=== PATIENT | female | born 1930 | race Caucasian/White ===

== ENCOUNTER 2019-02-16 23:19 | Inpatient (IN) | payer MEDICAID, MEDICARE, OTHER ==
[2019-02-17] MEDS ORDERED: fentaNYL 100 MCG/2 ML SDV NASBOTH ONE ×3 (00:14→02:30)
--- NOTE | 2019-02-17 00:16 | EDM.PDOC ---
ED HPI GENERAL MEDICAL PROBLEM - General Chief Complaint: Lower Extremity Injury/Pain Stated Complaint: BROKEN HIP? Time Seen by Provider: 02/17/19 00:11 Source of Information: Reports: Patient, Family, RN Notes Reviewed History Limitations: Reports: No Limitations - History of Present Illness INITIAL COMMENTS - FREE TEXT/NARRATIVE: 88-year-old female presents emergency department today complaint of right hip pain she had a fall at home does have a history of replacement on the right side she is experiencing significant pain and cannot ambulate. Of note she is on hospice for congestive heart failure right hip/groin Pain Score (Numeric/FACES): 3 - Related Data Allergies Allergy/AdvReac Type Severity Reaction Status Date / Time aspirin Allergy Cannot Verified 02/16/19 23:45 Remember Home Meds: Home Meds Acetaminophen [Tylenol] 325 mg PO DAILY 02/16/19 [History] Digoxin [Digox] 125 mcg PO DAILY 02/16/19 [History] Diltiazem [Diltiazem XR] 240 mg PO DAILY 02/16/19 [History] Furosemide [Lasix] 40 mg PO BID 02/16/19 [History] Lisinopril 10 mg PO DAILY 02/16/19 [History] Melatonin 5 mg PO BEDTIME 02/16/19 [History] Metoprolol Succinate 100 mg PO DAILY 02/16/19 [History] Phenytoin Sodium Extended [Dilantin] 100 mg PO DAILY 02/16/19 [History] Potassium Chloride 20 meq PO DAILY 02/16/19 [History] Sennosides/Docusate Sodium [Senna Plus 8.6-50 mg Tablet] 1 tab PO DAILY [History] Spironolactone [Aldactone] 37.5 mg PO DAILY 02/16/19 [History] Past Medical History HEENT History: Reports: Impaired Vision Cardiovascular History: Reports: Afib, Heart Failure, Hypertension Respiratory History: Reports: COPD CLINICAL NURSE History: Reports: Musculoskeletal History: Reports: Fracture Neurological History: Reports: Seizure Psychiatric History: Reports: Dementia - Infectious Disease History Infectious Disease History: Reports: Chicken Pox, Measles, Mumps - Past Surgical History Musculoskeletal Surgical History: Reports: Hip Replacement, Other (See Below) Other Musculoskeletal Surgeries/Procedures:: x2 hip fractures/ replacements on right side. surgical repair of left knee Social & Family History - Tobacco Use Smoking Status *Q: Never Smoker - Caffeine Use Caffeine Use: Reports: Coffee - Recreational Drug Use Recreational Drug Use: No Review of Systems - Review of Systems Review Of Systems: See Below Musculoskeletal: Reports: Joint Pain (Hip pain) ED EXAM, GENERAL - Physical Exam Exam: See Below Free Text/Narrative:: Dissemination the right hip I don't appreciate any bruising there is no erythema noted she is tender to the slightest flexion or extension of the right hip no tenderness at the knee Exam Limited By: No Limitations General Appearance: Alert, WD/WN, No Apparent Distress Course - Vital Signs Last Recorded V/S: Last Vital Signs Temp 97.7 F 02/16/19 23:56 Pulse 88 02/16/19 23:56 Resp 15 02/16/19 23:56 BP 149/73 H 02/16/19 23:56 Pulse Ox 97 02/16/19 23:56 - Orders/Labs/Meds Orders: Active Orders 24 hr Category Date Time Status Peripheral IV Care [RC] . DIRECTED Care 02/17/19 03:16 Ordered HYDROmorphone [Dilaudid] Med 02/17/19 03:16 Once 0.5 mg IVPUSH ONETIME ONE Sodium Chloride 0.9% [Saline Flush] Med 02/17/19 03:16 Ordered 10 ml FLUSH ASDIRECTED PRN Peripheral IV Insertion Adult [OM.PC] Urgent Oth 02/17/19 03:16 Ordered Medication Orders Hydromorphone HCl (Dilaudid) 0.5 mg IVPUSH ONETIME ONE Stop: 02/17/19 03:17 Sodium Chloride (Saline Flush) 10 ml FLUSH ASDIRECTED PRN PRN Reason: Keep Vein Open Meds: Medications Generic Name Dose Route Start Last Admin Trade Name Freq PRN Reason Stop Dose Admin Hydromorphone HCl 0.5 mg 02/17/19 03:16 Dilaudid IVPUSH 02/17/19 03:17 ONETIME ONE Sodium Chloride 10 ml 02/17/19 03:16 Saline Flush FLUSH ASDIRECTED PRN Keep Vein Open Discontinued Medications Generic Name Dose Route Start Last Admin Trade Name Freq PRN Reason Stop Dose Admin Fentanyl 25 mcg 02/17/19 00:14 02/17/19 00:28 Sublimaze NASBOTH 02/17/19 00:15 25 mcg ONETIME ONE Administration Fentanyl 50 mcg 02/17/19 02:28 02/17/19 02:35 Sublimaze NASBOTH 02/17/19 02:29 Not Given ONETIME ONE Fentanyl 50 mcg 02/17/19 02:30 02/17/19 02:39 Sublimaze NASBOTH 02/17/19 02:31 50 mcg ONETIME ONE Administration Departure - Departure Time of Disposition: 03:19 Disposition: Admitted As Inpatient 67 Condition: Poor Clinical Impression: Fracture of superior pubic ramus Qualifiers: Encounter type: initial encounter Fracture type: closed Laterality: right Qualified Code(s): S32.511A - Fracture of superior rim of right pubis, initial encounter for closed fracture Inferior pubic ramus fracture Qualifiers: Encounter type: initial encounter Fracture type: closed Laterality: right Qualified Code(s): S32.591A - Other specified fracture of right pubis, initial encounter for closed fracture - Discharge Information Referrals: PCP,None [Primary Care Provider] - Forms: ED Department Discharge - My Orders Last 24 Hours: My Active Orders 02/17/19 03:16 Peripheral IV Care [RC] . DIRECTED HYDROmorphone [Dilaudid] 0.5 mg IVPUSH ONETIME ONE Sodium Chloride 0.9% [Saline Flush] 10 ml FLUSH ASDIRECTED PRN Peripheral IV Insertion Adult [OM.PC] Urgent - Assessment/Plan Last 24 Hours: My Active Orders 02/17/19 03:16 Peripheral IV Care [RC] . DIRECTED HYDROmorphone [Dilaudid] 0.5 mg IVPUSH ONETIME ONE Sodium Chloride 0.9% [Saline Flush] 10 ml FLUSH ASDIRECTED PRN Peripheral IV Insertion Adult [OM.PC] Urgent Plan: Assessment Acuity = acute Site and laterality = acute nondisplaced fractures right superior inferior pubic rami the pelvis Etiology = secondary to a fall Manifestations = pain Location of injury = Home Lab values = CT describes the fractures above Plan Called discussed case with Dr. Combs at 320 he agreed to come in and evaluate the patient patient in the hospital she will be admitted for pain control This note was dictated using [employer] voice recognition software please call with any questions on syntax or grammar.
--- NOTE | 2019-02-17 01:36 | CRLCR ---
Indication: Fall, pain Technique: One view Comparison: None Findings: Single-view right hip shows the patient to be status post right total hip replacement with lateral plate and screw fixation of the proximal femur with multiple cerclage wires. Plate and screws are not entirely included on this examination. There is underlying osteopenia without acute fracture on this single view. No dislocation of the prosthesis. Atherosclerotic calcification noted. Dictated by Williams Mcdonald MD @ Feb 17 2019 1:31AM Signed by Dr. Williams Mcdonald @ Feb 17 2019 1:33AM
--- NOTE | 2019-02-17 02:58 | CRLCT ---
INDICATION: Pain after fall TECHNIQUE: CT pelvis without contrast. COMPARISON: Right hip series 02/17/2019 FINDINGS: Patient is status post right total hip replacement with lateral plate and cerclage wires without evidence of periprosthetic fracture. However, there is a nondisplaced fracture of the right superior pubic ramus near the pubic symphysis as well is a nondisplaced right inferior pubic ramus fracture. There is also a more subtle corresponding nondisplaced right sacral ala fracture, zone 1. There is underlying osteopenia. Degenerative disc disease is noted within the lower lumbar spine, greatest at the L3-4 level. There is a prominent atherosclerotic calcification. No significant hematoma. IMPRESSION: 1. Acute nondisplaced fractures of the right superior and inferior pubic rami. 2. Nondisplaced right sacral alar fracture, zone 1. 3. Status post right total hip replacement and lateral plate and screw fixation of the proximal right femur. Please note that all CT scans at this facility use dose modulation, iterative reconstruction, and/or weight-based dosing when appropriate to reduce radiation dose to as low as reasonably achievable. Dictated by Williams Mcdonald MD @ Feb 17 2019 2:43AM Signed by Dr. Williams Mcdonald @ Feb 17 2019 2:56AM
[2019-02-17] MEDS ORDERED: HYDROmorphone 0.5 MG/0.5 ML Syringe IVPUSH ONE (03:16)
[2019-02-17] MEDS ORDERED: Sodium Chloride 0.9% 10 ML Syringe FLUSH PRN (03:16)
--- NOTE | 2019-02-17 07:25 | PCM.HP.2 ---
H&P History of Present Illness - General Date of Service: 02/17/19 Admit Problem/Dx: Admission Diagnosis/Problem Admission Diagnosis/Problem Fracture of pelvis Source of Information: Patient, EMS History Limitations: Reports: Altered Mental Status - History of Present Illness Initial Comments - Free Text/Narative: 88-year-old female with past medical history of COPD, seizure disorder, congestive heart failure, systolic, diastolic HF, previous history of alcohol abuse, atrial fibrillation, hypertension, GERD, generalized anxiety disorder, hypokalemia, history of tobacco abuse, in hospice care came to the ED with the concerns of fall. Patient has intermittent confusion. In the ED patient had x-ray of hip and CT pelvis which showed fracture of right superior, inferior ramus fracture and coccyx Fx. Patient received DIlaudid in the ED which control the pain. Patient is in hospice care. Other review of systems are not significant. right hip/groin Pain Score (Numeric/FACES): 5 - Related Data Allergies/Adverse Reactions: Allergies Allergy/AdvReac Type Severity Reaction Status Date / Time aspirin Allergy Cannot Verified 02/16/19 23:45 Remember Home Medications: Home Meds Acetaminophen [Tylenol] 325 mg PO DAILY 02/16/19 [History] Digoxin [Digox] 125 mcg PO DAILY 02/16/19 [History] Diltiazem [Diltiazem XR] 240 mg PO DAILY 02/16/19 [History] Furosemide [Lasix] 40 mg PO BID 02/16/19 [History] Lisinopril 10 mg PO DAILY 02/16/19 [History] Melatonin 5 mg PO BEDTIME 02/16/19 [History] Metoprolol Succinate 100 mg PO DAILY 02/16/19 [History] Phenytoin Sodium Extended [Dilantin] 100 mg PO DAILY 02/16/19 [History] Potassium Chloride 20 meq PO DAILY 02/16/19 [History] Sennosides/Docusate Sodium [Senna Plus 8.6-50 mg Tablet] 1 tab PO DAILY [History] Spironolactone [Aldactone] 37.5 mg PO DAILY 02/16/19 [History] Past Medical History HEENT History: Reports: Impaired Vision Cardiovascular History: Reports: Afib, Heart Failure, Hypertension Respiratory History: Reports: COPD DENTURE PACKER History: Reports: Musculoskeletal History: Reports: Fracture Neurological History: Reports: Seizure Psychiatric History: Reports: Dementia - Infectious Disease History Infectious Disease History: Reports: Chicken Pox, Measles, Mumps - Past Surgical History Musculoskeletal Surgical History: Reports: Hip Replacement, Other (See Below) Other Musculoskeletal Surgeries/Procedures:: x2 hip fractures/ replacements on right side. surgical repair of left knee Social & Family History - Family History Family Medical History: Noncontributory - Tobacco Use Smoking Status *Q: Never Smoker - Caffeine Use Caffeine Use: Reports: Coffee - Recreational Drug Use Recreational Drug Use: No H&P Review of Systems - Review of Systems: Review Of Systems: See Below General: Denies: Fever, Chills Pulmonary: Denies: Shortness of Breath, Wheezing Cardiovascular: Denies: Chest Pain, Palpitations Gastrointestinal: Denies: Abdominal Pain, Anorexia Genitourinary: Denies: Dysuria, Frequency Musculoskeletal: Reports: Leg Pain, Muscle Pain. Denies: Neck Pain, Muscle Stiffness Skin: Denies: Cyanosis, Jaundice Psychiatric: Reports: Confusion. Denies: Depression, Mood Lability Neurological: Reports: Confusion. Denies: Dizziness, Headache Exam - Exam Exam: See Below - Vital Signs Vital Signs: Last Vital Signs Temp 35.7 C 02/17/19 03:22 Pulse 83 02/17/19 03:22 Resp 20 02/17/19 03:22 BP 134/88 02/17/19 03:22 Pulse Ox 92 L 02/17/19 03:22 Weight: 58.967 kg - Exam General: Alert. No: Oriented Neck: Supple, Trachea Midline Lungs: Clear to Auscultation, Normal Respiratory Effort Cardiovascular: No: Regular Rate, Regular Rhythm GI/Abdominal Exam: Normal Bowel Sounds Extremities: Normal Inspection (Patient has external rotation of right lower extremity) - Problem List (1) COPD (chronic obstructive pulmonary disease) SNOMED Code(s): 49147310 ICD Code: J44.9 - CHRONIC OBSTRUCTIVE PULMONARY DISEASE, UNSPECIFIED Status : Acute Current Visit: Yes (2) Congestive heart failure SNOMED Code(s): 81842567 ICD Code: I50.9 - HEART FAILURE, UNSPECIFIED Status: Acute Current Visit : Yes (3) Hypertension SNOMED Code(s): 58652226 ICD Code: I10 - ESSENTIAL (PRIMARY) HYPERTENSION Status: Acute Current Visit: Yes (4) Hyperlipidemia SNOMED Code(s): 06153519 ICD Code: E78.5 - HYPERLIPIDEMIA, UNSPECIFIED Status: Acute Current Visit : Yes (5) Atrial fibrillation SNOMED Code(s): 59809143 ICD Code: I48.91 - UNSPECIFIED ATRIAL FIBRILLATION Status: Acute Current Visit: Yes (6) Seizure disorder SNOMED Code(s): 309817411 ICD Code: G40.909 - EPILEPSY, UNSP, NOT INTRACTABLE, WITHOUT STATUS EPILEPTICUS Status: Acute Current Visit: Yes (7) Alcohol abuse SNOMED Code(s): 47913223 ICD Code: F10.10 - ALCOHOL ABUSE, UNCOMPLICATED Status: Acute Current Visit: Yes (8) Gastroesophageal reflux disease SNOMED Code(s): 484164228 ICD Code: K21.9 - GASTRO-ESOPHAGEAL REFLUX DISEASE WITHOUT ESOPHAGITIS Status: Acute Current Visit: Yes (9) Hypokalemia SNOMED Code(s): 54783968 ICD Code: E87.6 - HYPOKALEMIA Status: Acute Current Visit: Yes (10) Tobacco abuse SNOMED Code(s): 330851101 ICD Code: Z72.0 - TOBACCO USE Status: Acute Current Visit: Yes (11) Fracture of superior pubic ramus SNOMED Code(s): 164934282 ICD Code: S32.519A - FRACTURE OF SUPERIOR RIM OF UNSP PUBIS, INIT FOR CLOS FX Status: Acute Current Visit: Yes Qualifiers: Encounter type: initial encounter Fracture type: closed Laterality: right Qualified Code(s): S32.511A - Fracture of superior rim of right pubis, initial encounter for closed fracture (12) Hip pain SNOMED Code(s): 13215317 ICD Code: M25.559 - PAIN IN UNSPECIFIED HIP Status: Acute Current Visit: Yes (13) Inferior pubic ramus fracture SNOMED Code(s): 655952522 ICD Code: S32.599A - OTH FRACTURE OF UNSP PUBIS, INIT ENCNTR FOR CLOSED FRACTURE Status: Acute Current Visit: Yes Qualifiers: Encounter type: initial encounter Fracture type: closed Laterality: right Qualified Code(s): S32.591A - Other specified fracture of right pubis, initial encounter for closed fracture Problem List Initiated/Reviewed/Updated: Yes Orders Last 24hrs: Active Orders 24 hr Category Date Time Status Patient Status [ADT] Routine ADT 02/17/19 03:22 Active Bedrest Bedside Commode [RC] ASDIRECTED Care 02/17/19 03:21 Active Oxygen Therapy [RC] PRN Care 02/17/19 03:22 Active Peripheral IV Care [RC] Q12H Care 02/17/19 03:16 Active VTE/DVT Education [RC] Per Unit Routine Care 02/17/19 03:22 Active Vital Signs [RC] Q4H Care 02/17/19 03:22 Active Regular Diet [DIET] Diet 02/17/19 Breakfast Active HYDROmorphone [Dilaudid] Med 02/17/19 03:25 Active 0.5 mg IVPUSH Q2H PRN Sodium Chloride 0.9% [Saline Flush] Med 02/17/19 03:16 Active 10 ml FLUSH ASDIRECTED PRN Peripheral IV Insertion Adult [OM.PC] Urgent Oth 02/17/19 03:16 Ordered Resuscitation Status Routine Resus Stat 02/17/19 03:21 Ordered Medication Orders Hydromorphone HCl (Dilaudid) 0.5 mg IVPUSH Q2H PRN PRN Reason: Pain Sodium Chloride (Saline Flush) 10 ml FLUSH ASDIRECTED PRN PRN Reason: Keep Vein Open Assessment/Plan Comment:: 38-year-old female with past medical history of COPD, hypertension, hyperlipidemia, atrial fibrillation, previous history of alcohol abuse, smoking abuse, congestive heart failure in hospice status came to the ED with the concerns of fall and diagnosed with hip fracture and admitted into the hospital in observational status. Patient received diluadid in the emergency department will continue the same will continue home medications observational status we hold on any lab investigations as patient is in hospice care DVT prophylaxis not indicated Diet general diet as tolerated hospice care, comfort care
[2019-02-17] MEDS: Morphine 10 MG/0.5 ML Oral Syringe PO PRN ×3 (09:36→18:54)
[2019-02-17] MEDS: Metoprolol Succinate 50 MG Tab.ER PO SCH (13:08)
[2019-02-17] MEDS: Spironolactone 25 MG Tab PO SCH (13:09)
[2019-02-17] MEDS: Diltiazem 120 MG Cap.CD PO SCH (13:09)
[2019-02-17] MEDS: Digoxin 125 MCG Tab PO SCH (13:10)
[2019-02-17] MEDS: Potassium Chloride 20 MEQ Tab.ER PO SCH (13:10)
[2019-02-17] MEDS: Acetaminophen 500 MG Tab PO SCH ×3 (13:10→20:56)
[2019-02-17] MEDS: Phenytoin 100 MG Cap.ER PO SCH (13:11)
[2019-02-17] MEDS: Furosemide 40 MG Tab PO SCH (13:11)
--- NOTE | 2019-02-17 16:24 | PCM.SN ---
- Free Text/Narrative Note: Lisa was admitted last night for pain control after a pelvic fracture 2/2 to a fall. she used her first dose of morphine this morning. her daughter has chosen to give up the so the patient can rehabilitate after this fracture. Referrals have been sent to nursing homes near where her daughter lives in [place]. Shortness of breath is at baseline. She is on supplemental oxygen which is chronic. [employer] [employer] social welfare research worker is involved of the discharge planning process and discharge planning team has sent detention referrals. Ceferino Gilbert M.D.
[2019-02-17] MEDS: HYDROmorphone 0.5 MG/0.5 ML Syringe IVPUSH PRN (16:41)
[2019-02-17] MEDS ORDERED: Melatonin 3 MG Tab PO SCH (21:00)
[2019-02-18] MEDS: Morphine 10 MG/0.5 ML Oral Syringe PO PRN ×3 (01:26→22:47)
[2019-02-18] MEDS: HYDROmorphone 0.5 MG/0.5 ML Syringe IVPUSH PRN ×2 (03:30→09:09)
[2019-02-18] MEDS: Metoprolol Succinate 50 MG Tab.ER PO SCH (08:41)
[2019-02-18] MEDS: Spironolactone 25 MG Tab PO SCH (08:41)
[2019-02-18] MEDS: Acetaminophen 500 MG Tab PO SCH ×3 (08:42→20:02)
[2019-02-18] MEDS: Phenytoin 100 MG Cap.ER PO SCH (08:42)
[2019-02-18] MEDS: Diltiazem 120 MG Cap.CD PO SCH (08:42)
[2019-02-18] MEDS: Potassium Chloride 20 MEQ Tab.ER PO SCH (08:42)
[2019-02-18] MEDS: Lisinopril 10 MG Tab PO SCH (08:43)
[2019-02-18] MEDS: Furosemide 40 MG Tab PO SCH ×2 (08:43→13:26)
[2019-02-18] MEDS: Haloperidol Lactate 5 MG/ML SDV IVPUSH PRN ×3 (09:01→20:42)
--- NOTE | 2019-02-18 09:50 | PCM.PN ---
- General Info Date of Service: 02/18/19 Subjective Update: Overnight the patient developed agitation and scratched the night nurse. She has been continued to be agitated this morning. She did receive a dose of Haldol and has been more cooperative since that time. Patient seems to be fairly well controlled and she did receive a couple of doses of morphine yesterday as well as a couple of doses of hydromorphone. She has not had any fevers. She continues to have a loose cough. Functional Status: Reports: Pain Controlled, Tolerating Diet - Review of Systems General: Denies: Fever Psychiatric: Reports: Agitation - Patient Data Vitals - Most Recent: Last Vital Signs Temp 36.0 C 02/18/19 08:00 Pulse 87 02/18/19 08:42 Resp 20 02/18/19 08:00 BP 156/87 H 02/18/19 08:43 Pulse Ox 97 02/18/19 08:00 Weight - Most Recent: 58.967 kg I&O - Last 24 Hours: Intake & Output 02/17/19 02/18/19 02/18/19 22:59 06:59 14:59 Intake Total 90 Output Total 350 125 Balance -260 -125 Med Orders - Current: Current Medications Acetaminophen (Tylenol Extra Strength) 1,000 mg PO TID [facility] Last Admin: 02/18/19 08:42 Dose: 1,000 mg Digoxin (Lanoxin) 125 mcg PO DAILY@1300 [facility] Last Admin: 02/17/19 13:10 Dose: 125 mcg Diltiazem HCl (Cardizem Cd) 240 mg PO DAILY [facility] Last Admin: 02/18/19 08:42 Dose: 240 mg Furosemide (Lasix) 40 mg PO BIDDIURETIC [facility] Last Admin: 02/18/19 08:43 Dose: 40 mg Haloperidol Lactate (Haldol) 1 mg IVPUSH Q2H PRN PRN Reason: Agitation Last Admin: 02/18/19 09:01 Dose: 1 mg Hydromorphone HCl (Dilaudid) 0.5 mg IVPUSH Q2H PRN PRN Reason: Pain Last Admin: 02/18/19 09:09 Dose: 0.5 mg Lisinopril (Prinivil) 10 mg PO DAILY [facility] Last Admin: 02/18/19 08:43 Dose: 10 mg Melatonin (Melatonin) 6 mg PO BEDTIME [facility] Last Admin: 02/17/19 20:56 Dose: 6 mg Metoprolol Succinate (Toprol Xl) 100 mg PO DAILY [facility] Last Admin: 02/18/19 08:41 Dose: 100 mg Morphine Sulfate (Morphine 10 Mg/0.5 Ml Oral Syringe) 10 mg PO Q2H PRN PRN Reason: Pain Last Admin: 02/18/19 01:26 Dose: 10 mg Phenytoin Sodium (Phenytoin) 100 mg PO DAILY [facility] Last Admin: 02/18/19 08:42 Dose: 100 mg Potassium Chloride (Klor-Con M20) 20 meq PO DAILY [facility] Last Admin: 02/18/19 08:42 Dose: 20 meq Senna/Docusate Sodium (Senna Plus) 1 tab PO DAILY [facility] Last Admin: 02/18/19 08:42 Dose: 1 tab Sodium Chloride (Saline Flush) 10 ml FLUSH ASDIRECTED PRN PRN Reason: Keep Vein Open Spironolactone (Aldactone) 37.5 mg PO DAILY [facility] Last Admin: 02/18/19 08:41 Dose: 37.5 mg Discontinued Medications Fentanyl (Sublimaze) 25 mcg NASBOTH ONETIME ONE Stop: 02/17/19 00:15 Last Admin: 02/17/19 00:28 Dose: 25 mcg Fentanyl (Sublimaze) 50 mcg NASBOTH ONETIME ONE Stop: 02/17/19 02:29 Last Admin: 02/17/19 02:35 Dose: Not Given Fentanyl (Sublimaze) 50 mcg NASBOTH ONETIME ONE Stop: 02/17/19 02:31 Last Admin: 02/17/19 02:39 Dose: 50 mcg Hydromorphone HCl (Dilaudid) 0.5 mg IVPUSH ONETIME ONE Stop: 02/17/19 03:17 Last Admin: 02/17/19 04:02 Dose: 0.5 mg - Exam Quality Assessment: Supplemental Oxygen General: Alert, Cooperative, No Acute Distress. No: Oriented Lungs: Normal Respiratory Effort, Rhonchi (few end exp in upper lungs). No: Wheezing Cardiovascular: Regular Rate, Regular Rhythm GI/Abdominal Exam: Soft, No Distention Extremities: No Pedal Edema. No: Increased Warmth Skin: Warm, Dry Psy/Mental Status: Alert, Anxious - Problem List Review Problem List Initiated/Reviewed/Updated: Yes - My Orders Last 24 Hours: My Active Orders 02/17/19 09:30 Diltiazem [Cardizem CD] 240 mg PO DAILY Metoprolol Succinate [Toprol XL] 100 mg PO DAILY Phenytoin 100 mg PO DAILY Potassium Chloride [Klor-Con M20] 20 meq PO DAILY Spironolactone [Aldactone] 37.5 mg PO DAILY 02/17/19 10:00 Acetaminophen [Tylenol Extra Strength] 1,000 mg PO TID Docusate Sodium/Sennosides [Senna Plus] 1 tab PO DAILY 02/17/19 13:00 Digoxin [Lanoxin] 125 mcg PO DAILY@1300 02/17/19 14:00 Furosemide [Lasix] 40 mg PO BIDDIURETIC 02/17/19 15:27 PT Evaluation and Treatment [CONS] Routine 02/17/19 20:40 CHRISTIAN Hose [Antiembolic Hose] [OM.PC] Routine 02/17/19 21:00 Melatonin 6 mg PO BEDTIME 02/18/19 08:53 Haloperidol Lactate [Haldol] 1 mg IVPUSH Q2H PRN 02/18/19 09:00 Lisinopril [Prinivil] 10 mg PO DAILY 02/18/19 09:50 Morphine [Morphine 10 MG/0.5 ML Oral Syringe] 5 mg PO Q2H PRN 02/18/19 10:00 Doxycycline [Vibramycin] 100 mg PO Q12H 02/18/19 21:00 Melatonin 9 mg PO BEDTIME - Plan Plan:: ASSESSMENT AND PLAN - Right pelvic fracture - secondary to fall. Pain control seems to be adequate at this time. -Scheduled acetaminophen -As needed morphine -Physical therapy as able Hyperactive delirium - probably multifactorial with possible contribution from as well as medications and her current location in the intensive care unit as well as the trauma from her fall and fracture. Seems to be doing better this morning. -Melatonin at bedtime -Haldol for severe agitation End-stage congestive heart failure - she has been receiving hospice care for congestive heart failure. Seems to be well compensated at this time. -Continue medical management COPD - she has a loose cough and may have a component of bronchitis though this is questionable. -Trial of doxycycline -Nebs as needed Maintenance issues - - DVT prophylaxis - CHRISTIAN stockings - GI prophylaxis - not indicated - Nutrition - soft diet as tolerated - Regalado catheter - not indicated CODE STATUS - DNR/DNI with comfort measures Admission justification - patient has been referred observation status Disposition - I would anticipate discharge to a long term facility Ceferino Gilbert M.D.
[2019-02-18] MEDS: Doxycycline 100 MG Cap PO SCH ×2 (11:21→20:02)
[2019-02-18] MEDS: Digoxin 125 MCG Tab PO SCH (13:05)
[2019-02-18] MEDS: Melatonin 3 MG Tab PO SCH (20:02)
[2019-02-19] MEDS: Morphine 10 MG/0.5 ML Oral Syringe PO PRN (02:51)
[2019-02-19] MEDS: Metoprolol Succinate 50 MG Tab.ER PO SCH (08:01)
[2019-02-19] MEDS: Potassium Chloride 20 MEQ Tab.ER PO SCH (08:01)
[2019-02-19] MEDS: Acetaminophen 500 MG Tab PO SCH ×3 (08:02→21:16)
[2019-02-19] MEDS: Lisinopril 10 MG Tab PO SCH (08:03)
[2019-02-19] MEDS: Phenytoin 100 MG Cap.ER PO SCH (08:03)
[2019-02-19] MEDS: Furosemide 40 MG Tab PO SCH ×2 (08:03→13:32)
[2019-02-19] MEDS: Spironolactone 25 MG Tab PO SCH (08:03)
[2019-02-19] MEDS: Diltiazem 120 MG Cap.CD PO SCH (08:03)
[2019-02-19] MEDS: Doxycycline 100 MG Cap PO SCH ×2 (08:03→21:16)
--- NOTE | 2019-02-19 10:12 | PCM.PN ---
- General Info Date of Service: 02/19/19 Subjective Update: There were no acute events overnight. There was no significant agitation noted last night and the patient did not require any as needed medications. Vital signs have been stable. Cough and shortness of breath or little better today. Pain in her pelvis is better today. She is interested in trying to get up and walk a little bit with physical therapy. She remains pleasantly confused. Unfortunately we have not been able to locate any sort of care home or assisted living placement for her. Functional Status: Reports: Pain Controlled, Tolerating Diet - Review of Systems General: Denies: Fever Pulmonary: Reports: Cough - Patient Data Vitals - Most Recent: Last Vital Signs Temp 35.2 C 02/19/19 08:00 Pulse 71 02/19/19 08:03 Resp 18 02/19/19 08:00 BP 158/86 H 02/19/19 08:03 Pulse Ox 93 L 02/19/19 08:00 Weight - Most Recent: 58.967 kg I&O - Last 24 Hours: Intake & Output 02/18/19 02/19/19 02/19/19 22:59 06:59 14:59 Intake Total 240 240 Balance 240 240 Med Orders - Current: Current Medications Acetaminophen (Tylenol Extra Strength) 1,000 mg PO TID [facility] Last Admin: 02/19/19 08:02 Dose: 1,000 mg Digoxin (Lanoxin) 125 mcg PO DAILY@1300 [facility] Last Admin: 02/18/19 13:05 Dose: 125 mcg Diltiazem HCl (Cardizem Cd) 240 mg PO DAILY [facility] Last Admin: 02/19/19 08:03 Dose: 240 mg Doxycycline Hyclate (Vibramycin) 100 mg PO BID [facility] Last Admin: 02/19/19 08:03 Dose: 100 mg Furosemide (Lasix) 40 mg PO BIDDIURETIC [facility] Last Admin: 02/19/19 08:03 Dose: 40 mg Haloperidol Lactate (Haldol) 1 mg IVPUSH Q2H PRN PRN Reason: Agitation Last Admin: 02/18/19 20:42 Dose: 1 mg Hydromorphone HCl (Dilaudid) 0.5 mg IVPUSH Q2H PRN PRN Reason: Pain Last Admin: 02/18/19 09:09 Dose: 0.5 mg Lisinopril (Prinivil) 10 mg PO DAILY [facility] Last Admin: 02/19/19 08:03 Dose: 10 mg Melatonin (Melatonin) 9 mg PO BEDTIME [facility] Last Admin: 02/18/19 20:02 Dose: 9 mg Metoprolol Succinate (Toprol Xl) 100 mg PO DAILY [facility] Last Admin: 02/19/19 08:01 Dose: 100 mg Morphine Sulfate (Morphine 10 Mg/0.5 Ml Oral Syringe) 5 mg PO Q2H PRN PRN Reason: Pain Last Admin: 02/19/19 02:51 Dose: 5 mg Phenytoin Sodium (Phenytoin) 100 mg PO DAILY [facility] Last Admin: 02/19/19 08:03 Dose: 100 mg Potassium Chloride (Klor-Con M20) 20 meq PO DAILY [facility] Last Admin: 02/19/19 08:01 Dose: 20 meq Senna/Docusate Sodium (Senna Plus) 1 tab PO DAILY [facility] Last Admin: 02/19/19 08:02 Dose: 1 tab Sodium Chloride (Saline Flush) 10 ml FLUSH ASDIRECTED PRN PRN Reason: Keep Vein Open Spironolactone (Aldactone) 37.5 mg PO DAILY [facility] Last Admin: 02/19/19 08:03 Dose: 37.5 mg Discontinued Medications Fentanyl (Sublimaze) 25 mcg NASBOTH ONETIME ONE Stop: 02/17/19 00:15 Last Admin: 02/17/19 00:28 Dose: 25 mcg Fentanyl (Sublimaze) 50 mcg NASBOTH ONETIME ONE Stop: 02/17/19 02:29 Last Admin: 02/17/19 02:35 Dose: Not Given Fentanyl (Sublimaze) 50 mcg NAS[place]OTH ONETIME ONE Stop: 02/17/19 02:31 Last Admin: 02/17/19 02:39 Dose: 50 mcg Hydromorphone HCl (Dilaudid) 0.5 mg IVPUSH ONETIME ONE Stop: 02/17/19 03:17 Last Admin: 02/17/19 04:02 Dose: 0.5 mg Melatonin (Melatonin) 6 mg PO BEDTIME [facility] Last Admin: 02/17/19 20:56 Dose: 6 mg Morphine Sulfate (Morphine 10 Mg/0.5 Ml Oral Syringe) 10 mg PO Q2H PRN PRN Reason: Pain Last Admin: 02/18/19 01:26 Dose: 10 mg - Exam Quality Assessment: Supplemental Oxygen General: Alert, Oriented, Cooperative, No Acute Distress Lungs: Normal Respiratory Effort, Wheezing (rare right lower lung ) Cardiovascular: Regular Rate, Regular Rhythm GI/Abdominal Exam: Soft, No Distention Extremities: No Pedal Edema Psy/Mental Status: Alert, Normal Affect - Problem List Review Problem List Initiated/Reviewed/Updated: Yes - My Orders Last 24 Hours: My Active Orders 02/18/19 09:50 Morphine [Morphine 10 MG/0.5 ML Oral Syringe] 5 mg PO Q2H PRN 02/18/19 10:30 Doxycycline [Vibramycin] 100 mg PO BID 02/18/19 21:00 Melatonin 9 mg PO BEDTIME 02/19/19 09:14 Head wo Cont [CT] Routine - Plan Plan:: ASSESSMENT AND PLAN - Right pelvic fracture - secondary to fall. Pain control is acceptable. -Scheduled acetaminophen -As needed oxycodone -Physical therapy as able Hyperactive delirium - probably multifactorial but seems to have resolved. No issues overnight and no behavior issues today. 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 Seems to be well compensated at this time. -Continue medical management COPD - she has a loose cough and may have a component of bronchitis though this is questionable. -Trial of doxycycline -Nebs as needed Maintenance issues - - DVT prophylaxis - CHRISTIAN stockings - GI prophylaxis - not indicated - Nutrition - soft diet as tolerated - Regalado catheter - not indicated CODE STATUS - DNR/DNI with comfort measures Admission justification - patient was initially admitted to observation status. Unfortunately we do not have a safe discharge plan at this time and I anticipate that her hospital stay is going to be prolonged to include the entirety of the weekend. Hopefully there will be a care home bed available for her early next week. Disposition - I would anticipate discharge to a intermediate facility Ceferino Gilbert M.D.
--- NOTE | 2019-02-19 11:23 | CRLCT ---
INDICATION: Fall with possible head trauma, confusion TECHNIQUE: CT head without contrast. COMPARISON: None FINDINGS: CSF spaces: Within normal limits for age. Brain parenchyma: The mercedes-white differentiation is normal. No sign of mass, hemorrhage, or midline shift. Mild periventricular white matter changes consistent chronic microvascular disease. Diffuse volume loss. Skull base and calvarium: Small amount of fluid in left mastoid air cells. The visualized orbits are grossly unremarkable. No skull fractures. IMPRESSION: Atraumatic appearance of the brain. Periventricular white matter changes consistent with chronic microvascular disease. Diffuse volume loss. Dictated by Ramos Bautista MD @ 02/19/2019 11:21:29 AM Please note that all CT scans at this facility use dose modulation, iterative reconstruction, and/or weight-based dosing when appropriate to reduce radiation dose to as low as reasonably achievable. Dictated by: Ramos Bautista MD @ 02/19/2019 11:21:34 (Electronically Signed)
[2019-02-19] MEDS: Digoxin 125 MCG Tab PO SCH (13:32)
[2019-02-19] MEDS ORDERED: traMADol 50 MG Tab PO PRN (15:42)
[2019-02-19] MEDS: Melatonin 3 MG Tab PO SCH (21:16)
[2019-02-20] MEDS: Spironolactone 25 MG Tab PO SCH (08:08)
[2019-02-20] MEDS: Diltiazem 120 MG Cap.CD PO SCH (08:08)
[2019-02-20] MEDS: Metoprolol Succinate 50 MG Tab.ER PO SCH (08:08)
[2019-02-20] MEDS: Phenytoin 100 MG Cap.ER PO SCH (08:08)
[2019-02-20] MEDS: Lisinopril 10 MG Tab PO SCH (08:09)
[2019-02-20] MEDS: Furosemide 40 MG Tab PO SCH ×2 (08:09→13:13)
[2019-02-20] MEDS: Potassium Chloride 20 MEQ Tab.ER PO SCH (08:09)
[2019-02-20] MEDS: Acetaminophen 500 MG Tab PO SCH ×3 (08:09→21:47)
[2019-02-20] MEDS: Doxycycline 100 MG Cap PO SCH ×2 (08:09→21:46)
--- NOTE | 2019-02-20 09:39 | PCM.PN ---
- General Info Date of Service: 02/20/19 Subjective Update: No acute events overnight. No episodes of agitation. No fevers. Cough is improving. She is off supplemental oxygen this morning. Still having mild to moderate pain at rest and moderately severe pain with any activity. Appetite has been good. Sleeping well. Functional Status: Reports: Pain Controlled, Tolerating Diet - Review of Systems Musculoskeletal: Reports: Leg Pain (right hip ) - Patient Data Vitals - Most Recent: Last Vital Signs Temp 35.7 C 02/20/19 08:00 Pulse 87 02/20/19 08:08 Resp 18 02/20/19 08:00 BP 160/68 H 02/20/19 08:09 Pulse Ox 95 02/20/19 08:00 Weight - Most Recent: 58.967 kg I&O - Last 24 Hours: Intake & Output 02/19/19 02/20/19 02/20/19 22:59 06:59 14:59 Intake Total 840 Balance 840 Med Orders - Current: Current Medications Acetaminophen (Tylenol Extra Strength) 1,000 mg PO TID [facility] Last Admin: 02/20/19 08:09 Dose: 1,000 mg Digoxin (Lanoxin) 125 mcg PO DAILY@1300 [facility] Last Admin: 02/19/19 13:32 Dose: 125 mcg Diltiazem HCl (Cardizem Cd) 240 mg PO DAILY [facility] Last Admin: 02/20/19 08:08 Dose: 240 mg Doxycycline Hyclate (Vibramycin) 100 mg PO BID [facility] Last Admin: 02/20/19 08:09 Dose: 100 mg Furosemide (Lasix) 40 mg PO BIDDIURETIC [facility] Last Admin: 02/20/19 08:09 Dose: 40 mg Hydromorphone HCl (Dilaudid) 0.5 mg IVPUSH Q2H PRN PRN Reason: Pain Last Admin: 02/18/19 09:09 Dose: 0.5 mg Lisinopril (Prinivil) 10 mg PO DAILY [facility] Last Admin: 02/20/19 08:09 Dose: 10 mg Melatonin (Melatonin) 9 mg PO BEDTIME [facility] Last Admin: 02/19/19 21:16 Dose: 9 mg Metoprolol Succinate (Toprol Xl) 100 mg PO DAILY [facility] Last Admin: 02/20/19 08:08 Dose: 100 mg Phenytoin Sodium (Phenytoin) 100 mg PO DAILY [facility] Last Admin: 02/20/19 08:08 Dose: 100 mg Potassium Chloride (Klor-Con M20) 20 meq PO DAILY [facility] Last Admin: 02/20/19 08:09 Dose: 20 meq Senna/Docusate Sodium (Senna Plus) 1 tab PO DAILY [facility] Last Admin: 02/20/19 08:09 Dose: 1 tab Sodium Chloride (Saline Flush) 10 ml FLUSH ASDIRECTED PRN PRN Reason: Keep Vein Open Spironolactone (Aldactone) 37.5 mg PO DAILY [facility] Last Admin: 02/20/19 08:08 Dose: 37.5 mg Tramadol HCl (Ultram) 50 mg PO Q6H PRN PRN Reason: Pain Discontinued Medications Fentanyl (Sublimaze) 25 mcg NASBOTH ONETIME ONE Stop: 02/17/19 00:15 Last Admin: 02/17/19 00:28 Dose: 25 mcg Fentanyl (Sublimaze) 50 mcg [place] ONETIME ONE Stop: 02/17/19 02:29 Last Admin: 02/17/19 02:35 Dose: Not Given Fentanyl (Sublimaze) 50 mcg [place] ONETIME ONE Stop: 02/17/19 02:31 Last Admin: 02/17/19 02:39 Dose: 50 mcg Haloperidol Lactate (Haldol) 1 mg IVPUSH Q2H PRN PRN Reason: Agitation Last Admin: 02/18/19 20:42 Dose: 1 mg Hydromorphone HCl (Dilaudid) 0.5 mg IVPUSH ONETIME ONE Stop: 02/17/19 03:17 Last Admin: 02/17/19 04:02 Dose: 0.5 mg Melatonin (Melatonin) 6 mg PO BEDTIME [facility] Last Admin: 02/17/19 20:56 Dose: 6 mg Morphine Sulfate (Morphine 10 Mg/0.5 Ml Oral Syringe) 10 mg PO Q2H PRN PRN Reason: Pain Last Admin: 02/18/19 01:26 Dose: 10 mg Morphine Sulfate (Morphine 10 Mg/0.5 Ml Oral Syringe) 5 mg PO Q2H PRN PRN Reason: Pain Last Admin: 02/19/19 02:51 Dose: 5 mg - Exam Quality Assessment: No: Supplemental Oxygen General: Alert, Oriented, Cooperative, No Acute Distress Lungs: Normal Respiratory Effort, Rhonchi (mild diffuse rhonchi, carlos upper lungs ), Wheezing (mild end exp left side ) Extremities: No Pedal Edema Psy/Mental Status: Alert, Normal Affect - Problem List Review Problem List Initiated/Reviewed/Updated: Yes - My Orders Last 24 Hours: My Active Orders 02/19/19 15:39 Admission Status [Patient Status] [ADT] Routine 02/19/19 15:42 traMADol [Ultram] 50 mg PO Q6H PRN 02/20/19 09:37 Up With Assistance [RC] ASDIRECTED - Plan Plan:: ASSESSMENT AND PLAN - Right pelvic fracture - secondary to fall. Pain control is acceptable. -Scheduled acetaminophen -As needed tramadol -Physical therapy as able Hyperactive delirium - probably multifactorial but seems to have resolved. No behavior issues in the last couple of days. 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 Seems to be well compensated at this time. -Continue medical management COPD - cough and shortness of breath are improving. -Continue doxycycline -Nebs as needed Maintenance issues - - DVT prophylaxis - CHRISTIAN stockings - GI prophylaxis - not indicated - Nutrition - soft diet as tolerated - Regalado catheter - not indicated CODE STATUS - DNR/DNI with comfort measures Admission justification - patient was initially admitted to observation status. Unfortunately we do not have a safe discharge plan at this time and I anticipate that her hospital stay is going to be prolonged to include the entirety of the weekend. Hopefully there will be a skilled nursing bed available for her early next week. Disposition - I would anticipate discharge to a intermediate facility, unclear if she will remain on hospice through [facility] at this time. Ceferino Gilbert M.D.
[2019-02-20] MEDS: Digoxin 125 MCG Tab PO SCH (13:13)
[2019-02-20] MEDS: Melatonin 3 MG Tab PO SCH (21:46)
[2019-02-21] MEDS: Furosemide 40 MG Tab PO SCH ×2 (08:48→13:43)
[2019-02-21] MEDS: Spironolactone 25 MG Tab PO SCH (08:50)
[2019-02-21] MEDS: Diltiazem 120 MG Cap.CD PO SCH (08:53)
[2019-02-21] MEDS: Potassium Chloride 20 MEQ Tab.ER PO SCH (08:54)
[2019-02-21] MEDS: Phenytoin 100 MG Cap.ER PO SCH (08:55)
[2019-02-21] MEDS: Lisinopril 10 MG Tab PO SCH (08:55)
[2019-02-21] MEDS: Acetaminophen 500 MG Tab PO SCH ×3 (08:57→21:27)
[2019-02-21] MEDS: Metoprolol Succinate 50 MG Tab.ER PO SCH (08:57)
[2019-02-21] MEDS: Doxycycline 100 MG Cap PO SCH ×2 (08:58→21:28)
--- NOTE | 2019-02-21 09:47 | PCM.PN ---
- General Info Date of Service: 02/21/19 Subjective Update: There were no acute events overnight. There have been no behavior issues. Patient still has a mild cough but this is steadily improving. Shortness of breath is at baseline. Appetite has been good. Hip/pelvis pain is currently well controlled. Functional Status: Reports: Pain Controlled, Tolerating Diet - Review of Systems General: Denies: Fever Pulmonary: Reports: Cough - Patient Data Vitals - Most Recent: Last Vital Signs Temp 35.1 C L 02/21/19 04:00 Pulse 92 02/21/19 08:57 Resp 16 02/21/19 04:00 BP 141/90 H 02/21/19 08:57 Pulse Ox 92 L 02/21/19 04:00 Weight - Most Recent: 58.967 kg I&O - Last 24 Hours: Intake & Output 02/20/19 02/21/19 02/21/19 22:59 06:59 14:59 Intake Total 1500 Balance 1500 Med Orders - Current: Current Medications Acetaminophen (Tylenol Extra Strength) 1,000 mg PO TID [facility] Last Admin: 02/21/19 08:57 Dose: 1,000 mg Digoxin (Lanoxin) 125 mcg PO DAILY@1300 [facility] Last Admin: 02/20/19 13:13 Dose: 125 mcg Diltiazem HCl (Cardizem Cd) 240 mg PO DAILY [facility] Last Admin: 02/21/19 08:53 Dose: 240 mg Doxycycline Hyclate (Vibramycin) 100 mg PO BID [facility] Last Admin: 02/21/19 08:58 Dose: 100 mg Furosemide (Lasix) 40 mg PO BIDDIURETIC [facility] Last Admin: 02/21/19 08:48 Dose: 40 mg Hydromorphone HCl (Dilaudid) 0.5 mg IVPUSH Q2H PRN PRN Reason: Pain Last Admin: 02/18/19 09:09 Dose: 0.5 mg Lisinopril (Prinivil) 10 mg PO DAILY [facility] Last Admin: 02/21/19 08:55 Dose: 10 mg Melatonin (Melatonin) 9 mg PO BEDTIME [facility] Last Admin: 02/20/19 21:46 Dose: 9 mg Metoprolol Succinate (Toprol Xl) 100 mg PO DAILY [facility] Last Admin: 02/21/19 08:57 Dose: 100 mg Phenytoin Sodium (Phenytoin) 100 mg PO DAILY [facility] Last Admin: 02/21/19 08:55 Dose: 100 mg Potassium Chloride (Klor-Con M20) 20 meq PO DAILY [facility] Last Admin: 02/21/19 08:54 Dose: 20 meq Senna/Docusate Sodium (Senna Plus) 1 tab PO DAILY [facility] Last Admin: 02/21/19 08:56 Dose: 1 tab Sodium Chloride (Saline Flush) 10 ml FLUSH ASDIRECTED PRN PRN Reason: Keep Vein Open Spironolactone (Aldactone) 37.5 mg PO DAILY [facility] Last Admin: 02/21/19 08:50 Dose: 37.5 mg Tramadol HCl (Ultram) 50 mg PO Q6H PRN PRN Reason: Pain Discontinued Medications Fentanyl (Sublimaze) 25 mcg NASBOTH ONETIME ONE Stop: 02/17/19 00:15 Last Admin: 02/17/19 00:28 Dose: 25 mcg Fentanyl (Sublimaze) 50 mcg NASBOTH ONETIME ONE Stop: 02/17/19 02:29 Last Admin: 02/17/19 02:35 Dose: Not Given Fentanyl (Sublimaze) 50 mcg NASBOTH ONETIME ONE Stop: 02/17/19 02:31 Last Admin: 02/17/19 02:39 Dose: 50 mcg Haloperidol Lactate (Haldol) 1 mg IVPUSH Q2H PRN PRN Reason: Agitation Last Admin: 02/18/19 20:42 Dose: 1 mg Hydromorphone HCl (Dilaudid) 0.5 mg IVPUSH ONETIME ONE Stop: 02/17/19 03:17 Last Admin: 02/17/19 04:02 Dose: 0.5 mg Melatonin (Melatonin) 6 mg PO BEDTIME [facility] Last Admin: 02/17/19 20:56 Dose: 6 mg Morphine Sulfate (Morphine 10 Mg/0.5 Ml Oral Syringe) 10 mg PO Q2H PRN PRN Reason: Pain Last Admin: 02/18/19 01:26 Dose: 10 mg Morphine Sulfate (Morphine 10 Mg/0.5 Ml Oral Syringe) 5 mg PO Q2H PRN PRN Reason: Pain Last Admin: 02/19/19 02:51 Dose: 5 mg - Exam Quality Assessment: No: Supplemental Oxygen General: Alert, Cooperative, No Acute Distress HEENT: Pupils Equal Lungs: Normal Respiratory Effort, Rhonchi (mild diffuse ). No: Wheezing Cardiovascular: Regular Rate, Regular Rhythm GI/Abdominal Exam: Soft, No Distention Extremities: No Pedal Edema. No: Increased Warmth Psy/Mental Status: Alert, Normal Affect - Problem List Review Problem List Initiated/Reviewed/Updated: Yes - My Orders Last 24 Hours: My Active Orders 02/20/19 09:37 Up With Assistance [RC] ASDIRECTED - Plan Plan:: ASSESSMENT AND PLAN - Right pelvic fracture - secondary to fall. Pain control is acceptable. -Scheduled acetaminophen -As needed tramadol -Physical therapy as able Hyperactive delirium - resolved. 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 Seems to be well compensated at this time. -Continue medical management COPD - cough and shortness of breath are improving. -Continue doxycycline through 02/24 -Nebs as needed Maintenance issues - - DVT prophylaxis - CHRISTIAN stockings - GI prophylaxis - not indicated - Nutrition - soft diet as tolerated - Regalado catheter - not indicated CODE STATUS - DNR/DNI with comfort measures Admission justification - patient was initially admitted to observation status. Unfortunately we do not have a safe discharge plan at this time and I anticipate that her hospital stay is going to be prolonged to include the entirety of the weekend. Hopefully there will be a prison bed available for her early next week. Disposition - I would anticipate discharge to a fdc facility ( Assisted Living in [place] vs [facility] in [place]), unclear if she will remain on hospice through [facility] at this time. Ceferino Gilbret M.D.
[2019-02-21] MEDS: Digoxin 125 MCG Tab PO SCH (13:40)
[2019-02-21] MEDS ORDERED: Magnesium Hydroxide 400 MG/5 ML Susp 30 ML Cup PO PRN (16:30)
[2019-02-21] MEDS: Melatonin 3 MG Tab PO SCH (21:28)
[2019-02-22] MEDS: Furosemide 40 MG Tab PO SCH (08:36)
[2019-02-22] MEDS: Spironolactone 25 MG Tab PO SCH (08:43)
[2019-02-22] MEDS: Diltiazem 120 MG Cap.CD PO SCH (08:44)
[2019-02-22] MEDS: Potassium Chloride 20 MEQ Tab.ER PO SCH (08:45)
[2019-02-22] MEDS: Phenytoin 100 MG Cap.ER PO SCH (08:45)
[2019-02-22] MEDS: Metoprolol Succinate 50 MG Tab.ER PO SCH (08:46)
[2019-02-22] MEDS: Lisinopril 10 MG Tab PO SCH (08:46)
[2019-02-22] MEDS: Acetaminophen 500 MG Tab PO SCH (08:47)
[2019-02-22] MEDS: Doxycycline 100 MG Cap PO SCH (08:47)
--- NOTE | 2019-02-22 11:49 | PCM.DCSUM1 ---
Discharge Summary - Hospital Course Brief History: Ms. Stratton is an 88-year-old woman who was admitted through the emergency department with pain following a fall. Evaluation in the emergency department showed evidence of inferior and superior pubic rami fractures. - Discharge Data Discharge Date: 02/22/19 Discharge Disposition: DC/Tfer to [facility] Condition: Fair - Referral to Home Health Primary Care Physician: PCP None - Discharge Diagnosis/Problem(s) (1) Fracture of superior pubic ramus SNOMED Code(s): 817517280 ICD Code: S32.519A - FRACTURE OF SUPERIOR RIM OF UNSP PUBIS, INIT FOR CLOS FX Status: Acute Current Visit: Yes Qualifiers: Encounter type: initial encounter Fracture type: closed Laterality: right Qualified Code(s): S32.511A - Fracture of superior rim of right pubis, initial encounter for closed fracture (2) Inferior pubic ramus fracture SNOMED Code(s): 533799986 ICD Code: S32.599A - OTH FRACTURE OF UNSP PUBIS, INIT ENCNTR FOR CLOSED FRACTURE Status: Acute Current Visit: Yes Qualifiers: Encounter type: initial encounter Fracture type: closed Laterality: right Qualified Code(s): S32.591A - Other specified fracture of right pubis, initial encounter for closed fracture (3) COPD (chronic obstructive pulmonary disease) SNOMED Code(s): 11726907 ICD Code: J44.9 - CHRONIC OBSTRUCTIVE PULMONARY DISEASE, UNSPECIFIED Status : Acute Current Visit: Yes (4) Congestive heart failure SNOMED Code(s): 77757330 ICD Code: I50.9 - HEART FAILURE, UNSPECIFIED Status: Acute Current Visit : Yes - Patient Summary/Data Consults: Consultations 02/17/19 15:27 PT Evaluation and Treatment [CONS] Routine Please Evaluate and Treat. PT Reason for Consult: Ambulation Pending Discharge: Yes Discharge Disposition: [facility] Facility This query below is only for informational purposes and is not editable. Admission Diagnosis/Problem: Fracture of pelvis Hospital Course: Ms. Stratton is an 88-year-old female with past medical history of COPD, seizure disorder, congestive heart failure, systolic, diastolic HF. The day of admission she experienced a fall and on evaluation in the emergency department was found to have right superior and inferior pubic rami fracture as well as a fracture of the coccyx. Because of her underlying health problems in progressive decline she has been enrolled in hospice. She was mainly managed for comfort during hospital stay and by the time of discharge was fairly comfortable on a regimen of scheduled Tylenol and intermittent use of tramadol. She is unable to return to her previous living situation because of the fractures. [facility] She will receive physical [facility] the [facility]. During her hospitalization she was felt to have bacterial bronchitis and was treated with oral doxycycline. She will complete a total course with 2 more days of antibiotic therapy after discharge. - Patient Instructions Diet: Usual Diet as Tolerated Activity: As Tolerated Other/Special Instructions: Daily physical therapy [facility] the [facility]. Continue hospice after discharge from the hospital. - Discharge Plan *PRESCRIPTION DRUG MONITORING PROGRAM REVIEWED*: Not Applicable *COPY OF PRESCRIPTION DRUG MONITORING REPORT IN PATIENT PAZ: Not Applicable Prescriptions/Med Rec: Acetaminophen [Tylenol Extra Strength] 1,000 mg PO TID #100 tablet Doxycycline [Vibramycin] 100 mg PO BID #4 cap traMADol [Ultram] 50 mg PO Q6H PRN #20 tablet PRN Reason: Pain Home Medications: Home Meds Digoxin [Digox] 125 mcg PO DAILY 02/16/19 [History] Diltiazem [Dilacor XR] 240 mg PO DAILY 02/16/19 [History] Furosemide [Lasix] 40 mg PO BID 02/16/19 [History] Lisinopril 10 mg PO DAILY 02/16/19 [History] Melatonin 5 mg PO BEDTIME 02/16/19 [History] Metoprolol Succinate 100 mg PO DAILY 02/16/19 [History] Phenytoin Sodium Extended [Dilantin] 100 mg PO DAILY 02/16/19 [History] Potassium Chloride 20 meq PO DAILY 02/16/19 [History] Sennosides/Docusate Sodium [Senna Plus 8.6-50 mg Tablet] 1 tab PO DAILY [History] Spironolactone [Aldactone] 37.5 mg PO DAILY 02/16/19 [History] Acetaminophen [Tylenol Extra Strength] 1,000 mg PO TID #100 tablet 02/22/19 [Rx] Doxycycline [Vibramycin] 100 mg PO BID #4 cap 02/22/19 [Rx] traMADol [Ultram] 50 mg PO Q6H PRN #20 tablet 02/22/19 [Rx] Referrals: PCP,None [Primary Care Provider] - - Discharge Summary/Plan Comment DC Time >30 min.: No - Patient Data Vitals - Most Recent: Last Vital Signs Temp 98.6 F 02/22/19 11:00 Pulse 101 H 02/22/19 11:00 Resp 18 02/22/19 11:00 BP 117/58 L 02/22/19 11:00 Pulse Ox 91 L 02/22/19 11:00 Weight - Most Recent: 130 lb I&O - Last 24 hours: Intake & Output 02/21/19 02/22/19 02/22/19 22:59 06:59 14:59 Intake Total 360 Output Total 500 Balance -140 Med Orders - Current: Current Medications Acetaminophen (Tylenol Extra Strength) 1,000 mg PO TID [facility] Last Admin: 02/22/19 08:47 Dose: 1,000 mg Digoxin (Lanoxin) 125 mcg PO DAILY@1300 [facility] Last Admin: 02/21/19 13:40 Dose: Not Given Diltiazem HCl (Cardizem Cd) 240 mg PO DAILY [facility] Last Admin: 02/22/19 08:44 Dose: 240 mg Doxycycline Hyclate (Vibramycin) 100 mg PO BID [facility] Last Admin: 02/22/19 08:47 Dose: 100 mg Furosemide (Lasix) 40 mg PO BIDDIURETIC [facility] Last Admin: 02/22/19 08:36 Dose: 40 mg Hydromorphone HCl (Dilaudid) 0.5 mg IVPUSH Q2H PRN PRN Reason: Pain Last Admin: 02/18/19 09:09 Dose: 0.5 mg Lisinopril (Prinivil) 10 mg PO DAILY [facility] Last Admin: 02/22/19 08:46 Dose: 10 mg Magnesium Hydroxide (Milk Of Magnesia) 30 ml PO BID PRN PRN Reason: Constipation Last Admin: 02/21/19 17:52 Dose: 30 ml Melatonin (Melatonin) 9 mg PO BEDTIME [facility] Last Admin: 02/21/19 21:28 Dose: 9 mg Metoprolol Succinate (Toprol Xl) 100 mg PO DAILY [facility] Last Admin: 02/22/19 08:46 Dose: 100 mg Phenytoin Sodium (Phenytoin) 100 mg PO DAILY [facility] Last Admin: 02/22/19 08:45 Dose: 100 mg Potassium Chloride (Klor-Con M20) 20 meq PO DAILY [facility] Last Admin: 02/22/19 08:45 Dose: 20 meq Senna/Docusate Sodium (Senna Plus) 1 tab PO DAILY [facility] Last Admin: 02/22/19 08:46 Dose: 1 tab Sodium Chloride (Saline Flush) 10 ml FLUSH ASDIRECTED PRN PRN Reason: Keep Vein Open Spironolactone (Aldactone) 37.5 mg PO DAILY [facility] Last Admin: 02/22/19 08:43 Dose: 37.5 mg Tramadol HCl (Ultram) 50 mg PO Q6H PRN PRN Reason: Pain Last Admin: 02/22/19 03:47 Dose: 50 mg Discontinued Medications Fentanyl (Sublimaze) 25 mcg NASBOTH ONETIME ONE Stop: 02/17/19 00:15 Last Admin: 02/17/19 00:28 Dose: 25 mcg Fentanyl (Sublimaze) 50 mcg NASBOTH ONETIME ONE Stop: 02/17/19 02:29 Last Admin: 02/17/19 02:35 Dose: Not Given Fentanyl (Sublimaze) 50 mcg NASBOTH ONETIME ONE Stop: 02/17/19 02:31 Last Admin: 02/17/19 02:39 Dose: 50 mcg Haloperidol Lactate (Haldol) 1 mg IVPUSH Q2H PRN PRN Reason: Agitation Last Admin: 02/18/19 20:42 Dose: 1 mg Hydromorphone HCl (Dilaudid) 0.5 mg IVPUSH ONETIME ONE Stop: 02/17/19 03:17 Last Admin: 02/17/19 04:02 Dose: 0.5 mg Melatonin (Melatonin) 6 mg PO BEDTIME [facility] Last Admin: 02/17/19 20:56 Dose: 6 mg Morphine Sulfate (Morphine 10 Mg/0.5 Ml Oral Syringe) 10 mg PO Q2H PRN PRN Reason: Pain Last Admin: 02/18/19 01:26 Dose: 10 mg Morphine Sulfate (Morphine 10 Mg/0.5 Ml Oral Syringe) 5 mg PO Q2H PRN PRN Reason: Pain Last Admin: 02/19/19 02:51 Dose: 5 mg - Exam General: Reports: Alert, Cooperative, Mild Distress Lungs: Reports: Clear to Auscultation, Normal Respiratory Effort Cardiovascular: Reports: Regular Rate, Regular Rhythm, No Murmurs GI/Abdominal Exam: Soft, Non-Tender, No Organomegaly, No Distention
== END 2019-02-22 13:18 | disposition hospice, inpatient (51) | DRG 536 ==
LOC: JP.ED 23:19 → JP.ICU 02-17 03:21 → OBSVTOIN 02-19 15:39 → JP.ICU 02-21 14:05 → JP.MS 02-21 14:05 → UNDODISOB 02-22 13:18
PROVIDERS: ADMIT Family Medicine; ATTEND Hospitalist
DX: S32.511A Fracture of superior rim of right pubis, initial encounter for closed fracture (principal); I50.42 Chronic combined systolic (congestive) and diastolic (congestive) heart failure; S32.591A Other specified fracture of right pubis, initial encounter for closed fracture; J44.9 Chronic obstructive pulmonary disease, unspecified; G40.909 Epilepsy, unspecified, not intractable, without status epilepticus; Z66 Do not resuscitate; J40 Bronchitis, not specified as acute or chronic; I48.91 Unspecified atrial fibrillation; K21.9 Gastro-esophageal reflux disease without esophagitis; F41.1 Generalized anxiety disorder; I11.0 Hypertensive heart disease with heart failure; W19.XXXA Unspecified fall, initial encounter; H54.7 Unspecified visual loss; B96.89 Other specified bacterial agents as the cause of diseases classified elsewhere; Z96.649 Presence of unspecified artificial hip joint; F03.90 Unspecified dementia, unspecified severity, without behavioral disturbance, psychotic disturbance, mood disturbance, and anxiety; F10.10 Alcohol abuse, uncomplicated; E87.6 Hypokalemia; R41.0 Disorientation, unspecified; Z88.6 Allergy status to analgesic agent; Z79.899 Other long term (current) drug therapy
CPT/HCPCS: 70450; 72192; 73501-RT; 96374; 96375; 96376; 97110-GP; 97161-GP; 97530-GP; 99284; 99284-25; A9270-GY; G0378; J1170; J1630; J3010